=== PATIENT | female | born 1980 | race Caucasian/White ===

== ENCOUNTER 2024-02-04 14:20 | Emergency (ER) | payer OTHER ==
[~2024-02-04] VITALS: Ht 160 cm; Wt 51.3 kg
[2024-02-04] MEDS: IV NS 0.9% 1,000 ML BAG IV ONE (14:50)
[2024-02-04] MEDS ORDERED: METOCLOPRAMIDE HCL 10 MG/2 ML VIAL ONE (14:53)
[2024-02-04] MEDS ORDERED: FAMOTIDINE/PF INJ 20 MG/2 ML VIAL IV ONE (14:53)
[2024-02-04] MEDS ORDERED: PANTOPRAZOLE 40 MG VIAL ONE (14:53)
[2024-02-04] MEDS: METOCLOPRAMIDE HCL 10 MG/2 ML VIAL IV ONE (14:55)
[2024-02-04] MEDS: FAMOTIDINE/PF INJ 20 MG/2 ML VIAL IV ONE (14:55)
[2024-02-04] MEDS ORDERED: KETOROLAC TROMETHAMINE 15 MG/ML VIAL ONE (15:05)
[2024-02-04 15:07] LABS: BASOPHILS % (AUTO) 0.3 % (0.0-2.0); EOSINOPHILS % (AUTO) 0.4 % (0.0-6.0); HEMATOCRIT 38 % (33-45); HEMOGLOBIN 12.8 g/dL (11.5-14.8); LYMPHOCYTES # (AUTO) 1.6 K/uL (0.8-4.8); LYMPHOCYTES % (AUTO) 21.4 % (20.0-44.0); MEAN CORPUSCULAR HEMOGLOBIN 30 PG (26.0-33.0); MEAN CORPUSCULAR HGB CONC 34 g/dl (31.0-36.0); MEAN CORPUSCULAR VOLUME 89 fL (82-100); MONOCYTES # (AUTO) 0.5 K/uL (0.1-1.30); MONOCYTES % (AUTO) 6.2 % (2.0-12.0); NEUTROPHILS # (AUTO) 5.3 K/uL (1.8-8.9); NEUTROPHILS % (AUTO) 71.7 % (43.0-81.0); PLATELET COUNT (AUTO) 313 K/uL (150-450); RED BLOOD CELL COUNT(AUTO) 4.22 MIL/uL (4.0-5.2); RED CELL DISTRIBUTION WIDTH 13.2 % (11.5-15.0); WHITE BLOOD COUNT (AUTO) 7.4 K/uL (4.3-11.0)
[2024-02-04] MEDS: KETOROLAC TROMETHAMINE 15 MG/ML VIAL IV ONE (15:08)
[2024-02-04] MEDS: PANTOPRAZOLE 40 MG VIAL IV ONE (15:08)
[2024-02-04 15:15] LABS: CALCIUM, SERUM 8.8 mg/dL (8.5-10.1); CREATININE 0.6 mg/dL (0.6-1.3); POTASSIUM 3.7 mmol/L (3.5-5.1)
[2024-02-04 15:22] LABS: ALBUMIN 3.6 g/dL (3.4-5.0); BILIRUBIN,DIRECT 0.1 mg/dL (0.0-0.2); BILIRUBIN,TOTAL 0.5 mg/dL (0.2-1.0); TOTAL PROTEIN, SERUM 7.4 g/dL (6.4-8.2)
[2024-02-04 15:55] LABS: APPEARANCE,URINE Clear (CLEAR); BILIRUBIN,URINE Negative (NEGATIVE); BLOOD, URINE Negative Ery/uL (NEGATIVE); COLOR,URINE YELLOW (YELLOW); KETONES,URINE 15 mg/dL (NEGATIVE); LEUKOCYTE ESTERASE ,URINE Negative (NEGATIVE); NITRITE, URINE Negative (NEGATIVE); PH,URINE 7.5 (5.0-8.0); PROTEIN,URINE Negative (NEGATIVE); UGLUCOSE Negative (NEGATIVE); UROBILINOGEN,URINE 0.2 EU/dL (0.2)
[2024-02-04] MEDS ORDERED: HALOPERIDOL LACTATE INJ 5 MG/ML VIAL ONE (16:47)
[2024-02-04] MEDS: HALOPERIDOL LACTATE INJ 5 MG/ML VIAL IM ONE (16:52)
[2024-02-04] MEDS ORDERED: PANT40TA49 PO (17:51)
[2024-02-04] MEDS ORDERED: FAMO20TA80 PO (17:51)
[2024-02-04 18:24] VITALS: BP 124/83; TEMP 98.2; O2SAT 99
== END 2024-02-04 18:25 | disposition home or self-care (01) ==
LOC: ER 14:38
DX: R11.2 Nausea with vomiting, unspecified (principal); R10.84 Generalized abdominal pain; G40.909 Epilepsy, unspecified, not intractable, without status epilepticus; F12.10 Cannabis abuse, uncomplicated
CPT/HCPCS: 99284; 96374; 96361; 96375 ×3; 85025; 80048; 83690; 80076; 81003; 36415; 96372; J1630; J3490; J2765; J7030; C9113; J1885